=== PATIENT | male | born 1975 | race Caucasian/White ===

== ENCOUNTER 2020-09-08 16:59 | Emergency (ER) | payer BC, OTHER ==
[2020-09-08 18:10] VITALS: BP 132/90; PULSE 80; TEMP 98.3; BMI 34.8
== END 2020-09-08 22:19 | disposition home or self-care (01) ==
LOC: JER 16:59
DX: R05 Cough (principal); R06.02 Shortness of breath; U07.1 COVID-19
CPT/HCPCS: 71046-TC-FY; 99283-25